=== PATIENT | female | born 1990 | race Hispanic/Latino ===

== ENCOUNTER 2019-01-28 03:21 | Emergency (ER) | payer OTHER, SELFPAY ==
[2019-01-28] MEDS ORDERED: HYDROCODONE/APAP 5/325 MG TAB ONE (03:50)
[2019-01-28] MEDS ORDERED: NA CHLORIDE 0.9% 1,000 ML ONE (04:18)
[2019-01-28] MEDS ORDERED: ONDANSETRON 4 MG/2 ML VIAL ONE (04:23)
[2019-01-28] MEDS ORDERED: PROPOFOL 200 MG/20 ML VIAL IV ONE (04:23)
--- NOTE | 2019-01-28 04:55 | ER ---
Nurse's Notes [facility] Name: Beth Hanson Age: 29 yrs Sex: Female : 1990 Arrival Date: 01/28/2019 Time: 03:23 Bed 4 Private MD: Diagnosis: Displaced fracture of medial malleolus of left tibia;Displaced fracture of lateral malleolus of left fibula Presentation: 01/28 03:35 Presenting complaint: Patient states: slipped on wet stairs and twisted her left ankle ak1 at 0230. pt c/o pain. bruising to left ankle. Transition of care: patient was not received from another setting of care. Onset of symptoms was January 28, 2019. Risk Assessment: Do you want to hurt yourself or someone else? Patient reports no desire to harm self or others. Initial Sepsis Screen: Does the patient meet any 2 criteria? No. Patient's initial sepsis screen is negative. Does the patient have a suspected source of infection? No. Patient's initial sepsis screen is negative. Care prior to arrival: None. 03:35 Acuity: MIGUE 4 ak1 03:35 Method Of Arrival: Wheelchair ak1 Triage Assessment: 03:37 General: Appears uncomfortable, Behavior is calm, cooperative. Pain: Complains of pain ak1 in left lateral malleolus and left medial malleolus. EENT: No signs and/or symptoms were reported regarding the EENT system. Neuro: No deficits noted. Cardiovascular: No deficits noted. Respiratory: No deficits noted. GI: No signs and/or symptoms were reported involving the gastrointestinal system. : No signs and/or symptoms were reported regarding the genitourinary system. Derm: Bruising that is bright red, dark purple. Musculoskeletal: Range of motion: limited in left ankle Swelling present in left lateral malleolus and left medial malleolus. 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 - Social history:: Smoking status: Patient uses tobacco products, smokes one-half pack cigarettes per day. - Ebola Screening: : No symptoms or risks identified at this time. Screenin:38 Abuse screen: Denies threats or abuse. Denies injuries from another. Nutritional ak1 screening: No deficits noted. Tuberculosis screening: No symptoms or risk factors identified. Fall Risk None identified. Assessment: 04:12 Reassessment: pt and informed of need for sedation and splint. ak1 04:46 Reassessment: pt tolerated conscious sedation well. pt currently awake and talking to ak1 her spouse at bedside. pt with splint applied, crutch training completed. Vital Signs: 03:34 BP 115 / 99; Pulse 75; Resp 16; Temp 98.1(TE); Pulse Ox 100% on R/A; Weight 95.25 kg ak1 (R); Height 5 ft. 1 in. (154.94 cm) (R); Pain 8/10; 04:47 BP 112 / 70; Pulse 80; Resp 20; Temp 98.; Pulse Ox 100% on R/A; Pain 0/10; ak1 05:10 BP 111 / 69; Pulse 82; Resp 18; Temp 98; Pulse Ox 100% on R/A; Pain 2/10; ak1 03:34 Body Mass Index 39.68 (95.25 kg, 154.94 cm) ak1 ED Course: 03:13 Inserted saline lock: 20 gauge in right antecubital area, using aseptic technique. mw 03:23 Patient arrived in ED. ag3 03:29 Dyllan Jean MD is Attending Physician. tw4 03:34 Sharlene Quiros, RN is Primary Nurse. ak1 03:34 Arm band placed on Patient placed in an exam room, on a stretcher, on pulse oximetry, ak1 Patient notified of wait time. 03:36 Triage completed. ak1 03:38 Patient has correct armband on for positive identification. Bed in low position. Call ak1 light in reach. Side rails up X2. Adult w/ patient. Pulse ox on. NIBP on. 03:48 X-ray completed. Portable x-ray completed in exam room. Patient tolerated procedure kw well. 03:50 Ankle Left 2 View XRAY In Process Unspecified. EDMS 04:12 Consent for conscious sedation explained by staff, signed by patient. ak1 04:42 Ankle Left 2 View XRAY In Process Unspecified. EDMS 04:47 Assist provider with reduction of left ankle using manipulation, Set up for procedure. ak1 Performed by Dyllan Jean MD Immobilized with orthoglass splint Patient tolerated well. 04:51 Maicol Machuca MD is Referral Physician. tw4 05:09 IV discontinued, intact, bleeding controlled, No redness/swelling at site. Pressure ak1 dressing applied. Administered Medications: 03:48 Drug: [place] 5 mg-325 mg 1 tabs Route: PO; ak1 04:45 Follow up: Response: No adverse reaction; Pain is decreased ak1 04:24 Drug: NS 0.9% 1000 ml Route: IV; Rate: 1000 ml; Site: right antecubital; mw 05:11 Follow up: IV Status: Completed infusion; IV Intake: 900ml ak1 04:24 Drug: Zofran 4 mg Route: IVP; Site: right antecubital; mw 04:46 Follow up: Response: No adverse reaction ak1 04:29 Drug: Propofol 40 mg Route: IVP; Site: right antecubital; ak1 04:46 Follow up: Response: No adverse reaction; Pain is decreased; RASS: Drowsy (-1) ak1 04:29 Drug: Propofol 40 mg Route: IVP; Site: right antecubital; ak1 04:46 Follow up: Response: No adverse reaction; Pain is decreased; RASS: Drowsy (-1) ak1 04:30 Drug: Propofol 20 mg Route: IVP; Site: right antecubital; ak1 04:30 Follow up: Response: No adverse reaction; Pain is decreased; RASS: Light sedation (-2) ak1 Intake: 05:11 IV: 900ml; Total: 900ml. ak1 Outcome: 04:55 Discharge ordered by . tw4 05:09 Discharged to home via wheelchair, with crutches, with family. ak1 05:09 Condition: improved 05:09 Discharge instructions given to patient, family, Instructed on discharge instructions, follow up and referral plans. no drinking with medication, no driving heavy equipment, medication usage, crutch walking, wound care, Demonstrated understanding of instructions, follow-up care, medications, crutch walking, splint care, Prescriptions given X 2. 05:11 Patient left the ED. ak1 Signatures: Dispatcher [employer] EDSD Shanae Rosenthal RN RN Anahi Rosario Amber RN RN ak1 Dyllan Jean MD MD tw4 Maribel Lewis ag3
--- NOTE | 2019-01-28 04:56 | EDPHYS ---
Physician Documentation [facility] Name: Beth Hanson Age: 29 yrs Sex: Female : 1990 Arrival Date: 01/28/2019 Time: 03:23 Bed 4 Private MD: ED Physician Dyllan Jean HPI: 01/28 06:49 This 29 yrs old Female presents to ER via Wheelchair with complaints of Ankle tw4 Injury. 06:49 The patient presents with decreased range of motion, a deformity, an injury. The tw4 complaints affect the left ankle. Onset: The symptoms/episode began/occurred just prior to arrival, today. Context: The problem was sustained at home, resulted from the patient falling, a mis-step by the patient, The mechanism of injury involved eversion of the affected ankle. The mechanism of injury involved dorsiflexion-extension of the affected ankle. The patient is unable to bear weight. Associated signs and symptoms: The patient has no apparent associated signs or symptoms. Modifying factors: The symptoms are alleviated by elevation of extremity, the symptoms are aggravated by weight bearing, movement. Severity of symptoms: At their worst the symptoms were moderate, in the emergency department the symptoms are unchanged. The patient has not experienced similar symptoms in the past. 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 - Social history:: Smoking status: Patient uses tobacco products, smokes one-half pack cigarettes per day. - Ebola Screening: : No symptoms or risks identified at this time. ROS: 06:49 Constitutional: Negative for fever, chills, and weight loss, Eyes: Negative for injury, tw4 pain, redness, and discharge, Cardiovascular: Negative for chest pain, palpitations, and edema, Respiratory: Negative for shortness of breath, cough, wheezing, and pleuritic chest pain, Abdomen/GI: Negative for abdominal pain, nausea, vomiting, diarrhea, and constipation, Back: Negative for injury and pain. 06:49 MS/extremity: Positive for injury or acute deformity, ecchymosis, swelling, tenderness. Exam: 06:49 Constitutional: This is a well developed, well nourished patient who is awake, alert, tw4 and in no acute distress. Head/Face: Normocephalic, atraumatic. Chest/axilla: Normal chest wall appearance and motion. Nontender with no deformity. No lesions are appreciated. Cardiovascular: Regular rate and rhythm with a normal S1 and S2. No gallops, murmurs, or rubs. Normal PMI, no JVD. No pulse deficits. Respiratory: Lungs have equal breath sounds bilaterally, clear to auscultation and percussion. No rales, rhonchi or wheezes noted. No increased work of breathing, no retractions or nasal flaring. Abdomen/GI: Soft, non-tender, with normal bowel sounds. No distension or tympany. No guarding or rebound. No evidence of tenderness throughout. 06:49 Musculoskeletal/extremity: Extremities: noted in the left lateral ankle, left medial ankle and anterior aspect of left ankle: deformity, ecchymosis, pain, swelling, tenderness, There is no evidence of abrasion, bite, erythema, laceration, puncture, rash. Vital Signs: 03:34 BP 115 / 99; Pulse 75; Resp 16; Temp 98.1(TE); Pulse Ox 100% on R/A; Weight 95.25 kg ak1 (R); Height 5 ft. 1 in. (154.94 cm) (R); Pain 8/10; 04:47 BP 112 / 70; Pulse 80; Resp 20; Temp 98.; Pulse Ox 100% on R/A; Pain 0/10; ak1 05:10 BP 111 / 69; Pulse 82; Resp 18; Temp 98; Pulse Ox 100% on R/A; Pain 2/10; ak1 03:34 Body Mass Index 39.68 (95.25 kg, 154.94 cm) ak1 Procedures: 06:49 Splinting: Splint applied to left lateral ankle, lateral aspect of left foot, left tw4 Achilles, left medial ankle, medial aspect of left foot, anterior aspect of left ankle and dorsum of left foot using Orthoglass splint, applied by myself. post reduction film - reveals normal alignment, reveals improved alignment. 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 MDM: 03:30 Patient medically screened. tw4 06:49 Differential diagnosis: fracture, sprain, penetrating trauma. Data reviewed: vital tw4 signs, nurses notes. Data reviewed: radiologic studies, plain films. Counseling: I had a detailed discussion with the patient and/or guardian regarding: the historical points, exam findings, and any diagnostic results supporting the discharge/admit diagnosis, radiology results. Special discussion: I discussed with the patient/guardian in detail that at this point there is no indication for admission to the hospital. It is understood, however, that if the symptoms persist or worsen the patient needs to return immediately for re-evaluation. 01/28 03:30 Order name: Ankle Left 2 View XRAY tw4 01/28 04:32 Order name: Ankle Left 2 View XRAY tw4 Administered Medications: 03:48 Drug: [place] 5 mg-325 mg 1 tabs Route: PO; ak1 04:45 Follow up: Response: No adverse reaction; Pain is decreased ak1 04:24 Drug: NS 0.9% 1000 ml Route: IV; Rate: 1000 ml; Site: right antecubital; mw 05:11 Follow up: IV Status: Completed infusion; IV Intake: 900ml ak1 04:24 Drug: Zofran 4 mg Route: IVP; Site: right antecubital; mw 04:46 Follow up: Response: No adverse reaction ak1 04:29 Drug: Propofol 40 mg Route: IVP; Site: right antecubital; ak1 04:46 Follow up: Response: No adverse reaction; Pain is decreased; RASS: Drowsy (-1) ak1 04:29 Drug: Propofol 40 mg Route: IVP; Site: right antecubital; ak1 04:46 Follow up: Response: No adverse reaction; Pain is decreased; RASS: Drowsy (-1) ak1 04:30 Drug: Propofol 20 mg Route: IVP; Site: right antecubital; ak1 04:30 Follow up: Response: No adverse reaction; Pain is decreased; RASS: Light sedation (-2) ak1 Disposition: 01/28/19 04:55 Discharged to Home. Impression: Displaced fracture of medial malleolus of left tibia, Displaced fracture of lateral malleolus of left fibula. - Condition is Stable. - Discharge Instructions: Ankle Fracture, Ankle Fracture, [id number]. - Prescriptions for Ibuprofen 800 mg Oral Tablet - take 1 tablet by ORAL route every 8 hours As needed take with food; 30 tablet. Tylenol- Codeine #3 300-30 mg Oral Tablet - take 2 tablet by ORAL route every 6 hours As needed; 6 tablet. - Medication Reconciliation Form, Thank You Letter, Antibiotic Education, Prescription Opioid Use form. - Follow up: Private Physician; When: Upon discharge from the Emergency Department; Reason: If symptoms return, Recheck today's complaints, Continuance of care. Follow up: Maicol Machuca MD; When: Upon discharge from the Emergency Department; Reason: If symptoms return, Recheck today's complaints, Continuance of care. - Problem is new. - Symptoms have improved. Signatures: Dispatcher [employer] EDMS Shanae Rosenthal RN RN Sharlene Quiros RN RN ak1 Dyllan Jean MD MD tw4 Corrections: (The following items were deleted from the chart) 05:11 04:55 01/28/2019 04:55 Discharged to Home. Impression: Displaced fracture of medial ak1 malleolus of left tibia; Displaced fracture of lateral malleolus of left fibula. Condition is Stable. Forms are Medication Reconciliation Form, Thank You Letter, Antibiotic Education, Prescription Opioid Use. Follow up: Private Physician; When: Upon discharge from the Emergency Department; Reason: If symptoms return, Recheck today's complaints, Continuance of care. Follow up: Maicol Machuca; When: Upon discharge from the Emergency Department; Reason: If symptoms return, Recheck today's complaints, Continuance of care. Problem is new. Symptoms have improved. tw4
[2019-01-28 05:17] VITALS: O2SAT 100
[2019-01-28 05:18] VITALS: TEMP 98
[2019-01-28 05:21] VITALS: BP 111/69
--- NOTE | 2019-01-28 08:22 | RAD REPORT ---
EXAM DESCRIPTION: RAD - Ankle Left 2 View - 01/28/2019 3:51 am CLINICAL HISTORY: PAIN COMPARISON: No comparisons FINDINGS: The medial and lateral malleoli fractures are present with subluxation at the tibiotalar j oint. Moderate soft tissue swelling is present.
--- NOTE | 2019-01-28 08:24 | RAD REPORT ---
EXAM DESCRIPTION: RAD - Ankle Left 2 View - 01/28/2019 4:44 am CLINICAL HISTORY: POST REDUCTION COMPARISON: Ankle Left 2 View dated 01/28/2019 FINDINGS: Ankle fracture/subluxation has been mildly reduced and placed within a splint. Bone detail is obscured.
== END 2019-01-28 05:11 | disposition home or self-care (01) ==
LOC: ER 03:21
PROC: 0QSKXZZ Reposition Left Fibula, External Approach (ICD-10-PCS; principal; 2019-01-28)
PROC: 0QSHXZZ Reposition Left Tibia, External Approach (ICD-10-PCS; 2019-01-28)
DX: S82.52XA Displaced fracture of medial malleolus of left tibia, initial encounter for closed fracture (principal); S82.62XA Displaced fracture of lateral malleolus of left fibula, initial encounter for closed fracture; W01.0XXA Fall on same level from slipping, tripping and stumbling without subsequent striking against object, initial encounter; Y93.89 Activity, other specified; Y92.9 Unspecified place or not applicable
CPT/HCPCS: 96361; 73600 ×2; 96375; 96374; 99285; 27788; 27762; J2704; J7030; J2405

== ENCOUNTER 2019-02-07 08:00 | Day surgery (SDC) | payer SELFPAY ==
[2019-02-03 12:11] LABS: Absolute Lymphocytes (CBC) 2.4 K/uL (0.7-4.9); Basophils % 0.7 % (0-1.3); Hematocrit 40.6 % (36.0-45.0); MPV 7.7 fL (7.6-11.3); RBC Red Blood Cell Count 4.45 M/uL (3.86-4.86)
[2019-02-03 12:12] LABS: Potassium 4.1 mmol/L (3.5-5.1)
[2019-02-03 12:14] LABS: Protime INR 0.97
--- NOTE | 2019-02-03 13:34 | EKG ---
Test Date: 2019-02-03 Test Time: 11:34:24 Palliative Nurse: FERNANDO MEASUREMENT RESULTS: Intervals: Rate: 69 OK: 162 QRSD: 84 QT: 438 QTc: 469 [place]: P: 38 OK: 162 QRS: 20 T: 4 INTERPRETIVE STATEMENTS: Normal sinus rhythm Possible Left atrial enlargement Nonspecific T wave abnormality Prolonged QT Abnormal ECG No previous ECG available for comparison Electronically Signed On 02-03-19 13:34:06 CDT by Conrado Mckeon
[2019-02-07] MEDS ORDERED: Ringers Lactate 1,000 ML IV ONE ×2 (08:12→10:18)
[2019-02-07] MEDS ORDERED: CEFAZOLIN/SWI 2gm 2 GM/20 ML SYR ONE (08:12)
[2019-02-07 08:35] LABS: Specific Gravity 1.015 (1.005-1.030)
[2019-02-07] MEDS ORDERED: LIDOCAINE 2% MPF 5 ML VIAL ONE ×3 (08:45→10:04)
[2019-02-07] MEDS ORDERED: PROPOFOL 200 MG/20 ML VIAL IV ONE ×2 (08:45→10:03)
[2019-02-07] MEDS ORDERED: FENTANYL CITR 100 MCG/2 ML ONE ×2 (08:45→10:02)
[2019-02-07] MEDS ORDERED: MIDAZOLAM HCL 2 MG/2 ML INJ ONE ×2 (08:48→10:04)
[2019-02-07] MEDS ORDERED: dexAMETHasone 10 MG/ML VIAL ONE ×2 (08:54→11:47)
[2019-02-07] MEDS ORDERED: ROCURONIUM 50 MG/5 ML VIAL IV ONE (10:03)
[2019-02-07] MEDS ORDERED: ONDANSETRON 4 MG/2 ML VIAL ONE ×3 (10:04→14:17)
[2019-02-07] MEDS ORDERED: MEPERIDINE HCL 25 MG/0.5 ML ONE (11:00)
[2019-02-07] MEDS ORDERED: MORPHINE 10 MG/ML VIAL ONE (11:43)
[2019-02-07] MEDS ORDERED: NS 0.9% VIAL 20 ML ONE (11:44)
[2019-02-07] MEDS ORDERED: KETOROLAC 30 MG/ML INJ ONE (11:48)
--- NOTE | 2019-02-07 12:35 | P.BOP ---
Preoperative diagnosis: left bimalleolar ankle fracture Postoperative diagnosis: same Primary procedure: ORIF left bimalleolar ankle fracture Metal Technician: NONE,NONE Estimated blood loss: <10 cc Specimen: none Findings: see dictation Anesthesia: General Complications: None Implants: 6 hole third tubular plate, 3- 3.5 cortical screws, 4.0 cannulated screw Fluids & blood products: per anesthesia record; TT: 80 mins @ 300 mmHg Transferred to: Recovery Room Condition: Good
[2019-02-07] MEDS: HYDROMORPHONE HCL 2 MG/ML inj ONE ×3 (12:50→13:10)
--- NOTE | 2019-02-07 13:09 | RAD REPORT ---
EXAM DESCRIPTION: RAD - Ankle Left 2 View - 02/07/2019 1:01 pm CLINICAL HISTORY: Tibial/fibular fracture FINDINGS: Sideplate and screws affix medial and lateral malleolar fractures. No dislocation
[2019-02-07] MEDS ORDERED: HYDROCODONE/APAP 7.5/325 MG TAB ONE (14:14)
--- NOTE | 2019-02-07 14:50 | RAD REPORT ---
EXAM DESCRIPTION: RAD - Ankle Left 2 View - 02/07/2019 2:42 pm CLINICAL HISTORY: Tibia/fibula fractures FINDINGS: Fluoroscopy time 0.6 minutes. Fifteen fluoroscopic spot images obtained. Internal fixation of lateral and medial malleolar fractures by plate and screws Surgery performed by Dr. Sotelo
[2019-02-07 15:14] VITALS: BP 130/80; TEMP 97.5; O2SAT 97
--- NOTE | 2019-02-08 03:55 | OP ---
Date of Procedure: 02/07/2019 Surgeon: Wally Sotelo MD Preoperative Diagnosis: Left bimalleolar ankle fracture. Postoperative Diagnosis: Left bimalleolar ankle fracture. Procedure Performed: Open reduction and internal fixation, left bimalleolar ankle fracture. Anesthesia: General LMA. Fluids: Per Anesthesia record. Estimated Blood Loss: Less than 10 cc. Complications: None. Implants: 1.One 4.0 mm cannulated screw. 2.6-hole 1/3 tubular plate with three 3.5 cortical screws and two 4.0 cancellous screws. Tourniquet Time: 80 minutes at 300 mmHg. Fluids: Per anesthesia record. Indications For Procedure: Beth is a 29-year-old female who presented to my clinic with a left nando leolar ankle fracture sustaining an injury last week. She had significant displacement of her fractu re and unstable fracture pattern. I discussed with the patient at length risks and benefits associat ed with operative and nonoperative treatment. She expressed understanding and elected to proceed wit h operative treatment. Description Of Procedure: After informed consent was obtained, the patient was identified in the pre operative holding area. The left lower extremity was marked. The patient was then brought back to [facility] operating room, transferred to the operating table in supine fashion, placed under general LMA ane sthesia. While in the operating room, the patient did receive a popliteal block performed by Elier williamson. She was placed supine on the operating table with her extremities well padded. The left lower extremity was then prepped and draped in usual sterile fashion. A time-out was initiated. The corre ct patient and procedure were performed and identified. The patient did receive preoperative prophyl actic antibiotics. Approximately, a 10 cm longitudinal incision was made over the distal fibula. Di ssection was then taken down to the distal fibula using Metzenbaum. The fracture was identified and irrigated with normal saline. Any nonviable tissue was debrided. The fracture edges were curetted. The fracture was then reduced with a pointed reduction clamp. Once reduction was confirmed using fl uoroscopy as well as direct visualization, a lag screw was placed in standard AO technique with overd rilling the proximal cortex with 3.5 drill bit and distal cortex using 2.5 drill bit. A 3.5 cortical screw was placed with compression at the fracture site. An internalization plate was then placed ov er the distal fibula using a 6-hole 1/3 tubular plate, and two 4-0 cancellous screws were placed in u nicortical fashion distally to the distal fragment and three 3.5 cortical screws were placed in bicor tical fashion proximally. Follow overall good maintenance reduction as confirmed in both the AP and lateral views. The wound was then irrigated thoroughly with normal saline. Subcutaneous tissue was approximated using 2-0 Vicryl. Prior to closure, a pointed reduction clamp was then used to perform a Cotton test. The lateral stress placed on the distal fibula. There was no widening of the syndesm osis. Next, attention was taken to the medial malleolus where approximately a 5 cm incision was made centered over the tip of the medial malleolus. Dissection was then taken down to the medial malleol us. Fracture was identified and irrigated, curetted. It was then held reduced using a pointed reduc tion clamp. This was a small segment just distal to the syndesmosis but only 1 screw. Two K-wires w ere placed in a retrograde fashion to hold fixation of the distal fragment and a single 4-0 cannulate d screw was placed through the fracture fragment and there was overall good compression at the fractu re site. The K-wires were then removed. Views were then taken both AP and laterally. There was goo d overall reduction and placement of hardware. The wounds were then irrigated thoroughly with normal saline. Subcutaneous tissue was approximated using 2-0 Vicryl. Skin was approximated using a 3-0 n ylon. Sterile dressings were applied. The patient was placed in a posterior stirrup splint. Awaken ed and transferred to PACU in stable condition. Postoperative Plan: She will be nonweightbearing of her left lower extremity. She will follow up in 2 weeks for wound check and placement of a short-leg cast. CV/MODL Voice ID: [id number] Report ID: [id number]
== END 2019-02-07 15:00 | disposition home or self-care (01) ==
LOC: OR 08:00
PROVIDERS: ATTEND Orthopaedic Surgery Sports Medicine
PROC: 0QSH04Z Reposition Left Tibia with Internal Fixation Device, Open Approach (ICD-10-PCS; 2019-02-07)
PROC: 0QSK04Z Reposition Left Fibula with Internal Fixation Device, Open Approach (ICD-10-PCS; principal; 2019-02-07 09:00)
DX: S82.842A Displaced bimalleolar fracture of left lower leg, initial encounter for closed fracture (principal); E66.9 Obesity, unspecified; Z68.38 Body mass index [BMI] 38.0-38.9, adult; F17.210 Nicotine dependence, cigarettes, uncomplicated; Z83.3 Family history of diabetes mellitus
CPT/HCPCS: 93005; 85025; 80048; 36415; 81025; 85610; 85730; 73600 ×2; 27814; J2704; J2250; J1170; J3010; J1100 ×2; J2175; J0690; J2405 ×2